=== PATIENT | male | born 1965 | race Caucasian/White ===

== ENCOUNTER 2022-02-28 22:13 | Emergency (ER) | payer MEDICAID, OTHER ==
[~2022-02-28] VITALS: Ht 185.4 cm; Wt 83.9 kg
[~2022-02-28 22:13] MED LIST: LAMO25TA4 PO; LORA2TAB PO; MIRT30TA3 PO; PHEN100C4 PO; PHEN60TA11 PO
--- NOTE | 2022-02-28 22:13 | NUR ---
Dr. Flores at bedside. MSE in progress.
--- NOTE | 2022-02-28 22:30 | NUR ---
Instructed by Dr. Flores to perform suicide assesment after patient becomes sober.
[2022-02-28 23:00] LABS: HEMATOCRIT 44.6 % (36.7-47.1); MEAN CORPUSCULAR HEMOGLOBIN 31.4 uug (23.8-33.4); MEAN CORPUSCULAR VOLUME 91.4 fL (73.0-96.2); PLATELET COUNT (AUTO) 232 K/uL (152-348)
[2022-02-28 23:16] LABS: ETHANOL 346 MG/DL (0-0)
[2022-02-28 23:18] LABS: ALANINE AMINOTRANSFERASE 45 U/L (16-63); ALKALINE PHOSPHATASE 90 U/L (50-136); ASPARTATE AMINOTRANSFERASE 50 U/L (15-37); BILIRUBIN,DIRECT 0.1 mg/dL (0.0-0.2); BILIRUBIN,TOTAL 0.3 mg/dL (0.2-1.0); CARBON DIOXIDE 30 mmol/L (21-32); CHLORIDE 104 mmol/L (98-107); CREATININE 0.9 mg/dL (0.6-1.3); GLUCOSE 110 mg/dL (74-106); POTASSIUM 3.6 mmol/L (3.5-5.1); TOTAL PROTEIN, SERUM 7.6 g/dL (6.4-8.2); UREA NITROGEN, BLOOD 16 mg/dL (7-18)
--- NOTE | 2022-03-01 | NUR ---
Patient resting in bed, easliy wakened.
--- NOTE | 2022-03-01 02:00 | NUR ---
Patient unable to urinate, given 1600 cc of water.
--- NOTE | 2022-03-01 06:00 | NUR ---
Patient urinated. Urine sample sent to lab.
--- NOTE | 2022-03-01 06:15 | NUR ---
Still unable to perform suicide assment due to patient's ETOH level. Dr. Flores said to endorse to oncoming nurse.
--- NOTE | 2022-03-01 06:58 | NUR ---
Patient taken downstairs fot CT scan.
--- NOTE | 2022-03-01 07:00 | NUR ---
Report given to DALLIN Estraad.
--- NOTE | 2022-03-01 07:08 | NUR ---
Contacted [facility] waiting on the results that were sent to [facility] (Salicyclate and Acetminophen).
--- NOTE | 2022-03-01 07:16 | NUR ---
Reed Maker assumes care: patient is still in CT scan.
[2022-03-01 07:23] LABS: *BILIRUBIN,URIN NEGATIVE (NEGATIVE); *BLOOD, URINE NEGATIVE (NEGATIVE); *CLARITY,URINE CLEAR (CLEAR); *COLOR,URINE YELLOW (YELLOW); *KETONES,URINE NEGATIVE (NEGATIVE); *UROBILINOGEN,URINE 0.2 E.U./dl (NORMAL); LEUKOCYTE ESTERASE ,URINE NEGATIVE (NEGATIVE); NITRITE, URINE NEGATIVE (NEGATIVE); UGLUCOSE NEGATIVE (NEGATIVE)
--- NOTE | 2022-03-01 07:32 | NUR ---
Patient is back from CT scan, alert, awake, minimally verbal, moving all extremities, respiration:easy, nonlabored and even, pending results and soberiety@this time
[2022-03-01 08:10] LABS: *AMPHETAMINE, URINE NEGATIVE (NEGATIVE); *CANNABINOID, URINE POSITIVE (NEGATIVE); *COCCAINE, URINE NEGATIVE (NEGATIVE); *OPIATE, URINE NEGATIVE (NEGATIVE); *PHENCYCLIDINE SCREEN,URINE NEGATIVE (NEGATIVE)
[2022-03-01 10:00] LABS: ACETAMINOPHEN < 2.0 ug/mL (10-30)
--- NOTE | 2022-03-01 10:04 | NUR ---
Patient is medically cleared by Dr Fournier.
--- NOTE | 2022-03-01 10:35 | NUR ---
terrazzo worker helper Yuli is here. Patient verbalized that he wants to voluntarily be admitted to any available psych facilty. ER medical records were faxed to [facility], pending callback for acceptance.
--- NOTE | 2022-03-01 12:35 | NUR ---
Patient ambulated to bathroom from ER bed 4B with slow steady gait. Hot food tray at bedside.
--- NOTE | 2022-03-01 13:04 | NUR ---
Nursing SBAR given to DALLIN Wilkinson for lunch relief.
--- NOTE | 2022-03-01 13:34 | NUR ---
Patient is seen sleeping and resting comfortably again on [facility] with eyes closed, still for voluntary psych placement.
--- NOTE | 2022-03-01 14:56 | NUR ---
Social Work consult was requested for a patient in the emergency room for mental health, homeless and substance abuse resources. Patient is a 57-year-old male. Patient presents with depressed mood and congruent affect. Patient appears lethargic. Patient states he does not have a primary contact. Patient states he has been homeless for 10 years, and ANKUSH provided the patient with homeless resources for [facility] [address] [place] [address] ([phone]) and [facility] [address] [facility] [address] ([phone]). ANKUSH gave resources for [facility] [address] [facility] [address]. Per MD report, the patient presented with alcohol intoxication and the toxicology report was positive for benzodiazepines, cannabinoids and his alcohol level was 346. ANKUSH provided the patient with substance abuse resources for [facility] [address] [facility] [address] ([phone]), [facility] [address] [facility] [address] ([phone]), and [facility] [address] [facility] [address] ([phone]). Patient appears unmotivated for treatment. Patient states he has suicidal ideation and wants to go to [facility]. ANKUSH provided the patient with the mental health resource for [facility] [address] [place] [address] ([phone]) and faxed the patients facesheet to [facility] ([phone]). ANKUSH spoke with Manny ([phone]) and faxed the clinical information to [facility] Intake (fax: [phone]). ANKUSH informed nurse, Natalie and Dr. Fournier. ANKUSH also faxed the patients clinical information to [facility], and [place]. ANKUSH contacted Jennifer at [facility] and faxed the patients clinical paperwork to [phone].
--- NOTE | 2022-03-01 15:44 | NUR ---
Patient said, "I am withdrawing." He is AOx4, no tremors seen, air sampling and monitoring shows sinus rhythm with heart rate@low 90's/min, respiration:easy, skin warm and dry, Dr Fournier notified.
[2022-03-01] MEDS ORDERED: LORAZEPAM 1 MG TABLET ONE (15:57)
[2022-03-01] MEDS ORDERED: LORAZEPAM 0.5 MG TABLET PO ONE (16:00)
--- NOTE | 2022-03-01 16:13 | NUR ---
ANKUSH spoke with Minh from [facility] ([phone]) and he states [facility] will call the ER with acceptance information for the patient. Addendum: 03/01/22 at 1627 by REGAN LECHUGA ANKUSH also spoke with Yusra from [facility] ([phone]) and she states the patient is accepted and she is waiting for the acceptance information from the charge nurse at [facility].
--- NOTE | 2022-03-01 17:24 | NUR ---
Patient will voluntarily transfer to outside facility: [facility] Physician: Sara Location: unit 1 vs unit 2 RN: Christina gautam nursing SBAR extension 240 BLS ambulance [id number] ([facility])
--- NOTE | 2022-03-01 17:24 | NUR ---
Quita wiggins in EDM - 03/01/22 at 1731 by ANDREA Patient will voluntarily tranfers to outside facility: [facility] Physician: Sara Location: unit 1 vs unit 2 RN: Christina gautam nursing SBAR extension 240 BLS ambulance [id number] ([facility])
== END 2022-03-01 17:47 ==
LOC: ER 22:15
DX: F10.129 Alcohol abuse with intoxication, unspecified (principal); Y90.8 Blood alcohol level of 240 mg/100 ml or more; R45.851 Suicidal ideations; Z59.00 Homelessness unspecified; F32.A Depression, unspecified; F41.9 Anxiety disorder, unspecified; Z79.899 Other long term (current) drug therapy; Z20.822 Contact with and (suspected) exposure to COVID-19; S00.81XA Abrasion of other part of head, initial encounter; X58.XXXA Exposure to other specified factors, initial encounter; Y92.89 Other specified places as the place of occurrence of the external cause
CPT/HCPCS: 36415; 70450; 85025; G0480